=== PATIENT | female | born 1955 | race Caucasian/White ===

== ENCOUNTER 2016-08-24 09:21 | Outpatient (CLI) | payer BC ==
[2013-08-25 21:38] VITALS: BP 117/62
[2016-08-24 10:05] LABS: eGFR (African) > 60; eGFR (Non-African) > 60
== END 2016-08-24 09:22 ==
LOC: LAB 09:21
PROVIDERS: ATTEND Family Medicine
DX: Z00.00 Encounter for general adult medical examination without abnormal findings (principal); E55.9 Vitamin D deficiency, unspecified; E03.9 Hypothyroidism, unspecified
CPT/HCPCS: 36415; 80053; 80061; 82306; 84443

== ENCOUNTER 2016-10-16 09:55 | Day surgery (SDC) | payer BC ==
[2013-08-25 21:38] VITALS: BP 117/62
[~2016-10-16 09:55] MED LIST: LACTATED RINGERS 1,000 ML IV.SOLN IV ONE; LIDOCAINE HCL/PF 2% 100 MG/5 ML VIAL IJ ONE; PROPOFOL 200 MG/20 ML VIAL IV ONE; SALINE FLUSH 10 ML DISP.SYRIN IVF ONE
--- NOTE | 2016-10-19 08:34 | GI Report ---
REFERRING PHYSICIAN: Dr. Esha Flores CONCENTRATOR OPERATOR: Manish Paula MD PROCEDURE MEDICATION: Propofol as per anesthesia. INDICATIONS: A 61-year-old woman is referred for a screening. She had a grandparent with colon cancer. Patient denies any change in stools or bleeding. She has had diarrhea in the past but that is only intermittent at present. She has been on a gluten-free diet and that seems to have helped. PROCEDURE PERFORMED: Colonoscopy. PROCEDURE: An Olympus video colonoscope was advanced to the rectum. She had a fairly atonic redundant colon and it took moving to the supine position and nurse compression to finally reach the cecum. The appendiceal orifice and ileocecal looked normal. On slow withdrawal, the cecum, ascending colon, and transverse colon with redundancy. No obvious intraluminal lesions noted. The descending colon and sigmoid, again redundancy, but no obvious intraluminal lesions noted. Retroflexion of the rectum was normal. Patient tolerated the procedure well. FINDINGS: 1. Normal mucosa throughout the colon. 2. An atonic redundant colon. RECOMMENDATIONS: 1. Would increase bulk fiber in the diet, gluten free. 2. Consider re-looking at her colon in 7 to 10 years because of a family history of a grandparent. 3. Follow up with Dr. Flores. cc: Dr. Esha DODD
== END 2016-10-16 09:56 ==
LOC: OPSURG 09:55
PROVIDERS: ATTEND Internal Medicine Gastroenterology
DX: Z12.11 Encounter for screening for malignant neoplasm of colon (principal)
CPT/HCPCS: 45378; J2001; J2704; J7120; S1016

== ENCOUNTER 2017-12-18 11:38 | Outpatient (CLI) | payer OTHER ==
[2013-08-25 21:38] VITALS: BP 117/62
[2017-12-18 11:58] LABS: BASOPHILS % 0.6 (0.0-1.5); EOSINOPHILS % 3.8 % (0.0-6.8); MEAN CORPUSCULAR VOLUME 92.9 fl (80.0-100.0); MONOCYTES % 3.8 % (0.0-11.0); NEUTROPHILS # 4.6 # k/uL (1.4-7.7)
--- NOTE | 2017-12-18 17:49 | Diagnostic Imaging Report ---
HE SAUCEDO [facility] [address] [facility] [address] [id number] Report Submission Date: Dec 18, 2017 1:26:41 PM CDT Patient Study Name: BEATRIZ HOOVER Date: Dec 18, 2017 11:55:58 AM CDT Modality Type: DX Gender: F Description: CHEST : 53 Institution: [facility] Physician: HE SAUCEDO Examination: PA and lateral chest. History: COUGH X 2 WEEKS WITH A HISTORY OF COUGH X 3 MONTHS (Hx) Comparison exam: None provided. Findings: PA lateral chest demonstrate a normal cardiac and mediastinal silhouette. Left lower lung parenchymal haziness. No blunting of the costophrenic margins. Osseous structures are appropriate for age. Impression: Mild left lower lung parenchymal infiltrate. Electronically signed on Dec 18, 2017 1:26:41 PM CDT by: Marcus DODD
== END 2017-12-18 11:40 ==
LOC: LAB 11:38
PROVIDERS: ATTEND Physician Assistant
DX: R05 Cough (principal)
CPT/HCPCS: 36415; 71046; 85025